=== PATIENT | female | born 1995 | race Caucasian/White ===

== ENCOUNTER 2020-12-03 10:20 | Emergency (ER) | payer MEDICAID, SELFPAY ==
[2020-12-03 10:49] VITALS: BP 120/78; PULSE 84; RESP 15; TEMP 36.8; O2SAT 97; BMI 26.5
--- NOTE | 2020-12-03 10:59 | W.ED.ABDPA2 ---
HPI - Abdominal Pain General: Chief Complaint: Abdominal Pain Stated Complaint: cramping/bloating, + test Time Seen by Provider: 12/03/20 10:21 Source: patient Mode of arrival: ambulatory Limitations: no limitations History of Present Illness: HPI narrative: Patient is a 25-year-old presumed female with unknown gestational age here for complaints of left lower abdominal/pelvic cramping and left upper abdominal bloating. She states she took a home test 4 days ago that was positive. Reports LMP being at the beginning of October but states it was only for a few days. States cramping/bloating improves with sitting/lying down and worse with ambulation. No vaginal bleeding. Reports some mild clear/white discharge that she feels is physiological. No odor. Denies new sexual partners or concerns for STDs. No dyspareunia. She does not complain of dysuria, frequency, urgency. MD elicited complaint: abdominal pain Onset (ago): day(s) (yesterday) Pain Consistency: intermittent Location: LUQ and LLQ Quality: cramping and other (bloating) Radiation: none Migration to: no migration Relieving factors: other (sitting/lying down) Associated Symptoms: Denies change in stool character, chills, diarrhea, dysuria, fever(s), hematuria, nausea and vomiting Related Data: Date of Last Menstrual Period: 10/22/20 Patient : Yes Review of Systems Const: Denies: fever(s), chills, body aches, fatigue or malaise ENMT: Denies: throat pain or odynophagia Card: Denies: chest pain Resp: Denies: dyspnea GI: Reports: abdominal pain; Denies: nausea, vomiting, diarrhea or change in stool character : Reports: vaginal discharge and pelvic pain; Denies: flank pain, difficulty voiding, dysuria, urinary frequency, urinary urgency, urinary hesitancy, hematuria, genital lesions, genital pruritis, vaginal odor, vaginal bleeding or dyspareunia Musc: Denies: neck pain or back pain Skin/Breast: Denies: rash Neuro: Denies: headache(s) ON LICENSE OF [facility] ED PFSH: Social History (Updated 07/16/19 @ 16:01 by Maggie Rosado LPN) Smoking and tobacco status: current every day smoker Alcohol intake: never Female Reproductive History: Date of last menstrual period: 10/22/20 Physical Exam Const: COMMON NORMALS: no acute distress, average body habitus, patient oriented x3, no limitations, healthy appearing, alert and well nourished GENERAL APPEARANCE: cooperative Resp: COMMON NORMALS: normal respiratory effort and clear to auscultation bilaterally AUSCULTATION: clear to auscultation bilaterally Cardio: COMMON NORMALS: regular rate and regular rhythm RATE: regular rate RHYTHM: regular rhythm GI: COMMON NORMALS: Normal to inspection, nondistended, normoactive bowel sounds present, Soft to palpation, No hepatosplenomegaly present and no masses INSPECTION: Yes normal to inspection AUSCULTATION: Yes normoactive bowel sounds PALPATION: Yes Soft to palpation and Yes No hepatosplenomegaly present OTHER: very mild pain to LUQ and L lower pelvis : COMMON NORMALS: Yes no CVA tenderness BLADDER/KIDNEY EXAM: Yes no CVA tenderness Back/Pelvis: COMMON NORMALS: no CVA tenderness Extremity: GENERAL: Yes normal exam except as noted Neuro: COMMON NORMALS: patient oriented x3 SENSORIUM/ORIENTATION: Yes alert Skin: COMMON NORMALS: no rashes or lesions noted GENERAL SKIN EXAM: no rashes or lesions noted Course ED course: Patient had multiple attempts for blood work from RNs/phlebotomy but unsuccessful. She is refusing any further attempts. Vital Signs: Vital signs: Vital Signs Temperature 98.2 F 12/03/20 10:49 Pulse Rate 84 12/03/20 10:49 Respiratory Rate 15 12/03/20 10:49 Blood Pressure 120/78 12/03/20 10:49 Pulse Oximetry 97 12/03/20 10:49 MDM - Abdominal Pain MDM Narrative: Medical decision making narrative: Patient has refused any further attempts for blood work after multiple sticks were unsuccessful. I did go ahead and run a urine which was positive. Ultrasound evaluation was ordered however patient is refusing this stating she just wants to go home and also wants a work note. Patient was made aware that ectopic cannot be ruled out at this time as we cannot confirm location. Explained that ruptured ectopic pregnancies are life-threatening and OBGYN emergences. She verbalized understanding and wants to leave. Lab Data: Labs: Lab Results 12/03/20 12/03/20 Range/Units 11:20 11:20 Urine Color Yellow (Yellow) Urine Appearance Sl hazy (CLEAR) Urine pH 5 (5-7) Ur Specific Gravit y 1.015 (1.005-1.030) Urine Protein Neg (Negative) Urine Glucose (UA) Norm (Normal) Urine Ketones Negative (Negative) Urine Blood Neg (Negative) Urine Nitrate Negative (Negative) Urine Bilirubin Neg (Negative) Urine Urobilinogen Norm (Negative) mg/dL Ur Leukocyte Shalini ase Negative (Negative) Urine RBC 0-4 H (0-2) /hpf Urine WBC None (0-5) /hpf Ur Squamous Epith Cells 5-10 H (0-5) /hpf Amorphous Sediment Not Reportable Urine Bacteria 1+ H (NONE) /hpf Urine HCG, Qual Positive H (Negative) Discharge Plan Discharge Patient Disposition: Home Clinical Impression: Qualifiers: Weeks of gestation: unspecified Qualified Code(s): Z34.90 - Encounter for supervision of normal , unspecified, unspecified trimester Condition: Stable Prescriptions: No Action No Known Home Medications RF: 0 Discharge Orders: Discharge ED (Routine); Ordered 12/03/20 Ordered By: Lizbeth Colon Referrals: Toña Maya MD [Primary Care Provider] - Patient Instructions: (ED) Activity Restrictions/Additional Instructions: Your test here was positive. Lab work was ordered and attempted however you refused further attempts. Ultrasound evaluation was ordered and you have refused this as well. Ultimately an ectopic CANNOT be ruled out at this time. Ectopic pregnancies can be life threatening. You need to return to the ED immediately for worsening pelvic pain, vaginal bleeding, racing heart rate, shortness of breath, dizziness/passing out episodes, or any other concerns you may have. Stand Alone Forms: Work/School Release Coding Level of Care Code ED Staff Nurse [employer] Resource Team for Erica Fwd Exam Detailed
[2020-12-03 11:30] LABS: Add Urine Microscopic? YES; Bilirubin Urine Neg (Negative); Blood Urine Neg (Negative); Glucose Urine UA Norm (Normal); Ketones Urine Negative (Negative); Leukocyte Esterase Urine Negative (Negative); Nitrate Urine Negative (Negative); Protein Urine Neg (Negative); Specific Gravity, Urine 1.015 (1.005-1.030); Urine Appearance SL Hazy (CLEAR); Urine Color Yellow (Yellow); Urobilinogen Urine Norm (Negative); pH Urine 5 (5-7)
[2020-12-03 11:42] LABS: Add Urine Culture? No; Bacteria Urine 1+ /hpf; RBC Urine 0-4 /hpf (0-2)
[2020-12-03 12:31] VITALS: BP 118/71; PULSE 77; RESP 16; O2SAT 99
== END 2020-12-03 12:31 | disposition home or self-care (01) ==
PROVIDERS: Emergency Provider Physician Assistant; PCP Family Medicine
DX: O26.899 Other specified pregnancy related conditions, unspecified trimester (principal); R10.9 Unspecified abdominal pain; Z3A.00 Weeks of gestation of pregnancy not specified; O99.330 Smoking (tobacco) complicating pregnancy, unspecified trimester; F17.210 Nicotine dependence, cigarettes, uncomplicated
CPT/HCPCS: 81001; 81025; 99282

== ENCOUNTER 2021-07-26 04:32 | Outpatient (CLI) | payer MEDICAID, SELFPAY ==
[2021-07-26] VITALS (10 sets, daily range): BP systolic 111–131; BP diastolic 59–88; PULSE 83–92; RESP 17; TEMP 36.7; BMI 34.9
[2021-07-26 05:30] LABS: Bilirubin Urine Neg (Negative); Blood Urine Neg (Negative); Glucose Urine UA Norm (Normal); Ketones Urine Negative (Negative); Leukocyte Esterase Urine Negative (Negative); Nitrate Urine Negative (Negative); Protein Urine Neg (Negative); Specific Gravity, Urine 1.005 (1.005-1.030); Urine Appearance Clear (CLEAR); Urine Color Yellow (Yellow); Urobilinogen Urine Norm (Negative); pH Urine 7 (5-7)
[2021-07-26 05:31] LABS: Add Urine Culture? No; Bacteria Urine 2+ /hpf; RBC Urine 0-4 /hpf (0-2); Squamous Epithelial Cell Urine 15-25 /hpf (0-5); WBC Urine 0-4 /hpf (0-5)
== END 2021-07-26 06:43 | disposition home or self-care (01) ==
LOC: OPOB 04:37 → OBGYN 04:37
PROVIDERS: PCP Family Medicine; Visit Provider Family Medicine
DX: O26.899 Other specified pregnancy related conditions, unspecified trimester (principal); Z3A.00 Weeks of gestation of pregnancy not specified; R10.9 Unspecified abdominal pain
CPT/HCPCS: 59025; 81001; 99211

== ENCOUNTER 2021-07-27 17:15 | Outpatient (CLI) | payer MEDICAID, SELFPAY ==
[2021-07-27 17:29] VITALS: BP 119/69; PULSE 106
[2021-07-27 17:36] VITALS: RESP 16
[2021-07-27 17:48] VITALS: BP 114/77; PULSE 93
[2021-07-27 17:50] VITALS: BP 117/74; PULSE 94; TEMP 36.7
[2021-07-27 18:00] VITALS: BP 117/74; PULSE 94; TEMP 36.7
== END 2021-07-27 18:00 | disposition home or self-care (01) ==
LOC: OPOB 17:18 → OBGYN 17:21
PROVIDERS: PCP Family Medicine; Visit Provider Family Medicine
DX: O36.8190 Decreased fetal movements, unspecified trimester, not applicable or unspecified (principal); Z3A.00 Weeks of gestation of pregnancy not specified; R10.9 Unspecified abdominal pain
CPT/HCPCS: 59025; 99211

== ENCOUNTER 2021-07-30 06:11 | Inpatient (IN) | payer MEDICAID, SELFPAY ==
[2021-07-30] VITALS (47 sets, daily range): BP systolic 84–137; BP diastolic 50–81; PULSE 59–100; RESP 18–20; TEMP 36.6; BMI 32.8
[2021-07-30 06:45] LABS: Basophils % 0.2 %; Eosinophils # 0.1 10^3/uL (0.0-0.8); Eosinophils % 1.1 %; Hematocrit 32.4 % (37.0-47.0); Hemoglobin 11.2 g/dL (11.5-15.3); Lymphocytes # 3.7 10^3/uL (0.8-4.8); Lymphocytes % 28.4 %; Mean Corpuscular HGB Conc 34.6 g/dL (30.0-36.0); Mean Corpuscular Hemoglobin 31.2 pg (28.0-34.0); Mean Corpuscular Volume 90.3 fl (81-99); Mean Platelet Volume 12.1 fL (7.4-10.4); Monocytes # 0.9 10^3/uL (0.2-0.9); Monocytes % 7.3 %; Neutrophils # 8.07 10^3/uL (1.8-7.7); Neutrophils % 62.6 %; Nucleated Red Blood Cells % 0 %; Platelet Count 204 10^3/cmm (130-400); Red Blood Count 3.59 10^6/uL (4.1-5.3); Red Cell Distribution Width 13.2 % (12.1-15.1); White Blood Count 12.9 10^3/uL (4.0-10.0)
[2021-07-30] MEDS: dextrose 5%-lactated ringers 1,000 ML 125 ML IV ×2 (07:04→14:26)
[2021-07-30] MEDS: oxytocin 30 UNIT/500 ML BAG IV (07:04)
[2021-07-30] MEDS: fentaNYL 50 mcg/mL INJ 2mL IVP (16:17)
--- NOTE | 2021-07-30 16:54 | PM.OPHPUD ---
Labor & Delivery H&P Update Date of Procedure: July 30, 2021 Date H&P Performed: 07/28/21 Admission Diagnosis: Pregnanc inducted hypertension 38 weeks 4 days gestation desired permanent surgical sterilization Primary indication for procedure: clinic BPs 146/92 and 140/92
--- NOTE | 2021-07-30 16:59 | P.PCNOB_ITS ---
Delivery Note: Date of delivery: July 30, 2021 Delivery: This is a 25-year-old G4, P3 at 38 weeks 4 days gestation who was admitted for induction secondary to -induced hypertension. This was just diagnosed at her last clinic visit with blood pressures in the 140s over 90s. The patient was started on high-dose Pitocin. Baby was very high and ballotable most of the day. When she was 3 cm dilated she had spontaneous rupture of membranes with a copious amount of of fluid. Despite decreasing her Pitocin, her labor progressed precipitously after that. I was notified by at 1638 nursing to come immediatley and the was already delivered with strong cry heard in the hallway at my arrival. The cord was very short. I clamped and cut it. He was then placed on mothers chest. Cord blood was obtained. The placenta was delivered grossly intact and normal to inspection. There were no lacerations. Mother and were doing well after delivery. Infant's weight was 6 pounds 13 ounces, 3085 g, Apgars 8 and 9. A&P Assessment and plan (1) Normal spontaneous vaginal delivery: Routine care Mother desires permanent surgical sterilization with bilateral tubal ligation that will be scheduled for tomorrow. Status: Acute (2) induced hypertension, delivered, current hospitalization: Her blood pressure was only mildly elevated in clinic. It has been normal here. Status: Acute Coding Level of Care Code Acute Electronic Systems Technician for g Fwd Diagnoses Normal spontaneous vaginal delivery O80 induced hypertension, delivered, current hospitalization O13.4
[2021-07-30] MEDS: oxytocin 30 UNIT/500 ML BAG 999 UNIT IV (17:07)
[2021-07-30] MEDS: ibuprofen 800 mg tablet PO (21:30)
[2021-07-31] VITALS (16 sets, daily range): BP systolic 98–125; BP diastolic 60–84; PULSE 52–80; RESP 14–22; TEMP 36.4–36.8; O2SAT 90–97
[2021-07-31] MEDS: TRAMadol 50 mg Tablet PO ×2 (00:58→14:24)
[2021-07-31 04:29] LABS: Hematocrit 29.4 % (37.0-47.0); Hemoglobin 9.6 g/dL (11.5-15.3); Mean Corpuscular HGB Conc 32.7 g/dL (30.0-36.0); Mean Corpuscular Hemoglobin 31.7 pg (28.0-34.0); Mean Platelet Volume 12.2 fL (7.4-10.4); Platelet Count 150 10^3/cmm (130-400); Red Blood Count 3.03 10^6/uL (4.1-5.3); Red Cell Distribution Width 13.5 % (12.1-15.1); White Blood Count 12.8 10^3/uL (4.0-10.0)
[2021-07-31] MEDS: lactated ringers 1,000 ML 999 ML IV (11:09)
[2021-07-31] MEDS: metoclopramide 5 mg/mL SDV 2 mL 10 MG IVP (11:10)
[2021-07-31] MEDS: famotidine 20 mg/2 mL INJ IVP (11:10)
[2021-07-31] MEDS: citric acid-sodium citrate 30 mL UDC PO (11:10)
--- NOTE | 2021-07-31 11:46 | ANES.PREANE2 ---
Documented by User: Rosendo Godfrey Jr, LINK WIRE FABRIC MACHINE OPERATOR 07/31/21 11:50 Pre-Anesthetic Assessment Height/Weight: Height 1.6 m Weight 83.915 kg Temp Pulse Resp BP Pulse Ox 97.7 F 74 16 114/69 97 07/31/21 10:02 07/31/21 10:02 07/31/21 10:02 07/31/21 10:02 07/31/21 04:52 Preop Diagnosis: undesired fertility Operation Date: 07/31/21 12:10 Proposed Procedures p Post Bilateral Tubal Ligation(Not Applicable) - Toña Maya MD Familial anesthetic complications: Tubal ligation Was Beta Raad taken within 24 hours: N/A Was Clonidine taken within 24 hours: N/A Last Intake: 23:00 Social Tobacco and No alcohol 1/2 pack(s) per day 8+ pack years Exam alert, oriented x 3, clear to auscultation bilaterally and regular rate & rhythm Airway Submandibular: within normal limits Cervical ROM: within normal limits Mallampati: Class II Dentition: full Pulmonary None reported CV/HEM None reported None reported Hepatic None reported GI None reported Metabolic None reported Musc/skel None reported Neuropsych None reported Anesthetic Plan ASA status: 2 Anesthesia: General Risk of > 500 ml blood loss (7ml/kg in children): No Medications/Allergies Home Medications Medication Instructions Recorded Confirmed Last Taken Type No Known Home Medications 12/03/20 07/30/21 Unknown History Allergies Allergy/AdvReac Type Severity Reaction Status Date / Time No Known Allergies Allergy Verified 07/30/21 20:34 Current Medications Generic Name Dose Route Start Last Admin Trade Name Barron PRN Reason Stop Dose Admin Ibuprofen 800 mg 07/30/21 21:00 07/30/21 21:30 Ibuprofen 800 Mg Tablet PO 800 mg TID KATHERINE Administration Tramadol HCl 50 - 100 mg 07/30/21 17:11 07/31/21 00:58 Tramadol 50 Mg Tablet PO 50 mg Q4H PRN Administration MODERATE TO SEVERE PAIN PFSH Anesthesia Social History (Updated 07/16/19 @ 16:01 by Maggie Rosado LPN) Smoking and tobacco status: current every day smoker Alcohol intake: never Female Reproductive History Date of last menstrual period: 10/22/20 : 4 Data Anesthesia : 07/31/21 04:20 Short CBC 07/30/21 07/31/21 Range/Units 06:32 04:20 WBC 12.9 H 12.8 H (4.0-10.0) 10^3/uL Hgb 11.2 L 9.6 L (11.5-15.3) g/dL Hct 32.4 L 29.4 L (37.0-47.0) % MCV 90.3 97.0 D (81-99) fl Plt Count 204 150 (130-400) 10^3/cmm Neut % (Auto) 62.6 % Neut # (Auto) 8.07 H (1.8-7.7) 10^3/uL Cardiac Studies: No Data to Display
--- NOTE | 2021-07-31 13:28 | P.OP_ITS ---
Operative Report Date of procedure: July 31, 2021 Pre-op diagnosis: Preop Diagnosis undesired fertility Procedure done: bilateral tubal ligation with left fimbriectomy Specimens removed/disposition: Left fimbria Pathology: Segments of right and left fallopian tubes Surgeon: Toña Maya MD Estimated blood loss: 5 mL IV fluids: 800 mL Urine output: 125 mL Complications: none Procedure: The patient was taken to to the OR where general anesthesia was administered. She was prepped and draped in normal sterile fashion in dorsal supine position. A curvilinear incision was made under the umbilicus and carried through to the underlying layer of fascia bluntly using a hemostat. The fascia was grasped with Allis clamps and entered sharply using the Metzenbaums. The peritoneum was then entered digitally. Retractors were placed and the left fallopian tube was grasped with a Austin and brought into the operative field. A distal portion of the tube was ligated and excised. Tubal ostia were identified. The cut portions of the tube were coagulated using the Bovie. The distal portion with the fimbria easily tore with gentle traction and there was some bleeding of the broad ligament. This was tied off with chromic and the fimbria was excised. After hemostasis was verified the cut portion of the tube was returned to the abdomen. The right fallopian tube was then visualized and grasped with a Arminda. It was brought into the operative field. A distal portion of the tube was ligated and excised. Tubal ostia were identified. The cut portions of the tube were coagulated using the Bovie. There is good hemostasis and the cut portions of the tube were returned to the abdomen. The fascia and peritoneum was then reapproximated using 0 Vicryl in a running fashion. The skin was then reapproximated using 4-0 Vicryl in a running fashion. Steri-Strips and a pressure bandage were applied and patient went to recovery in good condition. Sponge instrument and needle counts were correct. There were no complications.
--- NOTE | 2021-07-31 14:00 | PC.NURSE ---
pt back to room from OR via bed
[2021-07-31] MEDS: acetaminophen 325 mg Tablet 650 MG PO (14:23)
[2021-07-31] MEDS: ibuprofen 800 mg tablet PO (14:23)
--- NOTE | 2021-07-31 14:57 | ANE.PACU2 ---
Inpatient post-anesthesia follow up: Airway intact: Yes Vital signs: Temperature 97.5 F Pulse Rate 71 Respiratory Rate 18 Blood Pressure 119/75 Pulse Oximetry 94 Oxygen Delivery Me thod Room Air Oxygen Flow Rate 2 Fraction of Inspir ed Oxygen Hydration adequate: Yes Nausea and vomiting: No Pain level: 2 Mental status: Baseline
--- NOTE | 2021-07-31 18:43 | P.DS_ITS ---
Discharge Providers Date of Admission: 07/30/21 06:11 Date of Discharge: July 31, 2021 Attending Provider at Admission: Toña Maya MD Attending Provider at Discharge: Toña Maya MD Primary Care Provider: Toña Maya MD Diagnoses at Discharge Discharge Diagnosis (1) Normal spontaneous vaginal delivery: Status: Acute (2) induced hypertension, delivered, current hospitalization: Status: Acute Reason for Visit Reason for Visit: INDUCTION Hospital Course Hospital Course This is a 25-year-old G4 now P4 who underwent induction secondary to - induced hypertension. She had a normal spontaneous vaginal delivery of a viable male infant. On day #1 she underwent a bilateral tubal ligation. She was doing well, ambulating, tolerating a regular diet, had good pain control and was comfortable with discharge home. Physical Exam Narrative: Sitting on the edge of the bed, alert and oriented, smiling and talking with family, abdomen soft and nontender, uterus firm, extremities no calf tenderness no edema. Dressing clean dry and intact Urinary Catheter Management: Straight Latex: Cath Placed During This Visit: no Discharge Data Studies Completed and Pending Pending at discharge Category Date Time Status Hemagram Timed Lab 08/01/21 01:30 Uncollected Pathology: Surgical [PTH] Routine Pth 07/31/21 13:26 Ordered Laboratory Results WBC 12.8 10^3/uL (4.0-10.0) H 07/31/21 04:20 RBC 3.03 10^6/uL (4.1-5.3) L 07/31/21 04:20 Hgb 9.6 g/dL (11.5-15.3) L 07/31/21 04:20 Hct 29.4 % (37.0-47.0) L 07/31/21 04:20 MCV 97.0 fl (81-99) D 07/31/21 04:20 MCH 31.7 pg (28.0-34.0) 07/31/21 04:20 MCHC 32.7 g/dL (30.0-36.0) D 07/31/21 04:20 RDW 13.5 % (12.1-15.1) 07/31/21 04:20 Plt Count 150 10^3/cmm (130-400) 07/31/21 04:20 MPV 12.2 fL (7.4-10.4) H 07/31/21 04:20 Neut % (Auto) 62.6 % 07/30/21 06:32 Lymph % (Auto) 28.4 % 07/30/21 06:32 [place] % (Auto) 7.3 % 07/30/21 06:32 Eos % (Auto) 1.1 % 07/30/21 06:32 Baso % (Auto) 0.2 % 07/30/21 06:32 Neut # (Auto) 8.07 10^3/uL (1.8-7.7) H 07/30/21 06:32 Lymph # (Auto) 3.7 10^3/uL (0.8-4.8) 07/30/21 06:32 [place] # (Auto) 0.9 10^3/uL (0.2-0.9) 07/30/21 06:32 Eos # (Auto) 0.1 10^3/uL (0.0-0.8) 07/30/21 06:32 Baso # (Auto) 0.0 10^3/uL (0.0-0.1) 07/30/21 06:32 Nucleated RBC % (auto) 0 % 07/30/21 06:32 Nucleated RBCs # 0.0 /100WBC 07/30/21 06:32 Vitals Last Vital Signs Temp 98.3 F 07/31/21 15:10 Pulse 56 L 07/31/21 17:10 Resp 17 07/31/21 17:10 BP 113/69 07/31/21 17:10 Pulse Ox 97 07/31/21 17:10 Discharge Plan Discharge Condition: Stable Prescriptions: New ibuprofen 800 mg Tablet 800 mg PO TID PRN (Reason: Abdominal Pain) 10 Days Qty: 30 0RF hydrocodone-acetaminophen 5-325 mg Tablet 1 - 2 tab PO Q6H PRN (Reason: Moderate To Severe Pain) Qty: 10 0RF Discharge Orders: Discharge Order (Routine); Ordered 07/31/21 Ordered By: Toña Maya Referrals: Toña Maya MD [Primary Care Provider] - 1-3 days (Wednesday) Discharge Diet: Usual diet Discharge Activity: Limit activity as instructed Patient Instructions: Depression (DC), Perineal Care (DC), Bleeding (DC), Preeclampsia and Eclampsia After Delivery (GEN), OB Food/Drug Interaction Guide, OB Care at Home, Opioid Safety, OB Vaginal Deliveries Activity Restrictions/Additional Instructions: No lifting >10 lbs for 2 weeks. Nothing per vagina for 6 weeks. Discharge Attestations Time Spent in Discharge Care*: less than 30 min Quality Metrics Clinical Quality Measures [ No reported AMI, CVA or VTE this stay] Coding Level of Care Code Acute Chg FW DC note Diagnoses Normal spontaneous vaginal delivery O80 induced hypertension, delivered, current hospitalization O13.4
== END 2021-07-31 20:29 | disposition home or self-care (01) | DRG 798 ==
LOC: OPOB 06:11 → OBGYN 06:11
PROVIDERS: Admitting Provider Family Medicine; PCP Family Medicine; Visit Provider Family Medicine
PROC: 0U570ZZ Destruction of Bilateral Fallopian Tubes, Open Approach (ICD-10-PCS; CPT 58605; principal; 2021-07-31 12:00)
DX: O13.4 Gestational [pregnancy-induced] hypertension without significant proteinuria, complicating childbirth (principal); Z37.0 Single live birth; O99.334 Smoking (tobacco) complicating childbirth; Z3A.38 38 weeks gestation of pregnancy; Z30.2 Encounter for sterilization
CPT/HCPCS: 36415; 51702; 59025; 59409; 85025; 85027; 88302; 99211; J0690; J1100; J2370; J2405; J2704; J2710; J2765; J3010; J3490

== ENCOUNTER → 2021-09-28 11:45 | Outpatient (BNVA) | payer MEDICAID, SELFPAY | PROVIDERS: PCP Family Medicine; Visit Provider Nurse Practitioner | DX: J11.1 Influenza due to unidentified influenza virus with other respiratory manifestations (principal) | CPT/HCPCS: 87400 ==

== ENCOUNTER 2022-06-07 16:04 | Emergency (ER) | payer MEDICAID, SELFPAY ==
[2022-06-07 16:12] VITALS: BP 120/83; PULSE 101; RESP 16; TEMP 37.4; O2SAT 98
--- NOTE | 2022-06-07 17:12 | ED_ITS ---
HPI - URI/Sore Throat General: Chief Complaint: Upper Respiratory Infection Stated Complaint: sore throat, body/head ache Time Seen by Provider: 06/07/22 17:08 History of Present Illness: 26-year-old female comes in today with complaints of sore throat cough, fever and poor appetite for the last 3 days. Patient is using [id number] cold and flu medications minimal relief. Patient appears nontoxic. Patient denies any chronic medical problems. Associated symptoms: Reports fever(s) Review of Systems Const: Reports: fever(s) and malaise ENMT: Reports: throat pain Resp: Reports: non-productive cough PFSH ED PFSH: Social History Smoking and tobacco status: current every day smoker Alcohol intake: never Female Reproductive History: Date of last menstrual period: 10/22/20 Physical Exam Const: COMMON NORMALS: alert HENMT: COMMON NORMALS: normocephalic HEAD & SCALP: normocephalic THROAT: posterior oropharynx abnormal cobblestoning Neck/C-Spine: COMMON NORMALS: full ROM Resp: COMMON NORMALS: normal respiratory effort and clear to auscultation bilaterally AUSCULTATION: clear to auscultation bilaterally Cardio: COMMON NORMALS: regular rate and regular rhythm RATE: regular rate RHYTHM: regular rhythm GI: COMMON NORMALS: non-tender : COMMON NORMALS: Yes no CVA tenderness BLADDER/KIDNEY EXAM: Yes no CVA tenderness Back/Pelvis: COMMON NORMALS: no CVA tenderness Neuro: SENSORIUM/ORIENTATION: Yes alert Skin: COMMON NORMALS: no rashes or lesions noted GENERAL SKIN EXAM: no rashes or lesions noted Course Vital Signs: Vital signs: Vital Signs Temperature 99.4 F 06/07/22 16:12 Pulse Rate 101 H 06/07/22 16:12 Respiratory Rate 16 06/07/22 16:12 Blood Pressure 120/83 06/07/22 16:12 Pulse Oximetry 98 06/07/22 16:12 MDM - URI/Sore Throat Medical Decision Making 26-year-old female comes in today with complaints of cough, sore throat, fever and malaise since Wednesday. Patient appears nontoxic. Lungs are clear to auscultation. Posterior pharynx is cobblestoning. Vital signs are normal. Differential diagnosis includes but not limited to viral syndrome, upper respiratory infection, influenza, COVID-19, strep pharyngitis. Patient did report contact with strep. Swabs for COVID, influenza, and strep were all negative. Reviewed exam with patient and recommendations for treatment with supportive care. Patient reported understanding agreed to plan. Lab Data Laboratory Results Influenza Type A Ag negative (Negative) 06/07/22 17:11 Influenza Type B Ag negative (Negative) 06/07/22 17:11 SARS-CoV-2 Ag (Rapid) negative (Negative) 06/07/22 17:11 Group A Strep Rapid Negative (Negative) 06/07/22 17:11 Discharge Plan Discharge Patient Disposition: Home Clinical Impression: Upper respiratory infection Qualifiers: URI type: unspecified URI Qualified Code(s): J06.9 - Acute upper respiratory infection, unspecified Condition: Stable Prescriptions: No Action hydrocodone-acetaminophen 5-325 mg Tablet 1 - 2 tab PO Q6H PRN (Reason: Moderate To Severe Pain) Qty: 10 0RF Discharge Orders: Discharge ED (Routine); Ordered 06/07/22 Ordered By: Rosendo Whalen Referrals: Toña Maya MD [Primary Care Provider] - Discharge Diet: Usual diet Discharge Activity: Increase activity as tolerated Patient Instructions: Upper Respiratory Infection (ED) Activity Restrictions/Additional Instructions: Home and rest. Drink plenty of fluids. Use acetaminophen and ibuprofen for pain and discomfort. Follow-up with primary care in 2 to 3 days for recheck. Return to ED for worsening symptoms such as inability to hold fluids down, chest pain, or increased shortness of breath. Coding Level of Care Code ED Environmental Compliance Manager for [employer] Fwd Exam Comprehensive
[2022-06-07] MEDS: ibuprofen 200 mg Tablet 400 MG PO (17:25)
[2022-06-07 17:47] LABS: Influenza A by IFA negative (Negative); Influenza B by IFA negative (Negative); SARS Covid-2 Antigen negative (Negative)
[2022-06-07 17:54] LABS: Rapid Strep A Test Negative (Negative)
[2022-06-07 18:11] VITALS: BP 115/79; PULSE 78; RESP 14; TEMP 36.7; O2SAT 96
== END 2022-06-07 18:09 | disposition home or self-care (01) ==
PROVIDERS: Emergency Provider Nurse Practitioner Family; PCP Family Medicine
DX: J06.9 Acute upper respiratory infection, unspecified (principal); Z20.822 Contact with and (suspected) exposure to COVID-19; F17.210 Nicotine dependence, cigarettes, uncomplicated
CPT/HCPCS: 87081; 87426; 87804; 87880; 99283

== ENCOUNTER 2023-08-21 07:48 | Emergency (ER) | payer MEDICAID, SELFPAY ==
[2023-08-21 07:54] VITALS: BP 147/96; PULSE 71; RESP 17; TEMP 36.5; O2SAT 100
[2023-08-21 08:03] VITALS: BP 147/96; PULSE 66; TEMP 36.5; O2SAT 100
--- NOTE | 2023-08-21 08:11 | ED_ITS ---
HPI - Dental/Oral General: Chief complaint: Dental/Oral Stated complaint: tooth pain Time Seen by Provider: 08/21/23 08:08 History of Present Illness: The patient presents to the emergency department with a chief complaint of severe toothache, which they describe as the worst they have ever experienced. The pain began on Wednesday and initially responded to [id number] Tylenol and ibuprofen; however, last night, the pain became unresponsive to these medications. The patient denies any fever but reports consistent pain that radiates up into their head. They have a history of dental issues but have not been able to afford dental care. The patient has a scheduled dental appointment in September and is waiting for a possible earlier opening. The patient also reports being extremely tired due to only getting an hour of sleep last night as a result of the pain. Associated symptoms: Denies fever(s) or odynophagia Review of Systems General: Reports: 10 or more systems reviewed and unremarkable except in HPI and below Const: Denies: fever(s), chills or body aches ENMT: Reports: mouth pain; Denies: throat pain, odynophagia or hoarseness Card: Denies: chest pain Resp: Denies: dyspnea Skin/Breast: Denies: rash Neuro: Denies: headache(s) PFS ED PFSH: Social History Smoking and tobacco/nicotine status: current every day tobacco/nicotine user Alcohol intake: never Substance/Drug Use: never Physical Exam Const: COMMON NORMALS: no acute distress, patient oriented x3 and alert EXAM LIMITATIONS: no altered mental status GENERAL APPEARANCE: cooperative ORIENTATION/CONSCIOUSNESS: Yes awake HENMT: COMMON NORMALS: normocephalic, moist oral mucous membranes and oropharynx normal HEAD & SCALP: normocephalic TEETH & GINGIVA: Yes abnormal tooth and associated gingiva, Yes caries (Dental caries noted on the posterior right molars with erythema noted surro) and Yes gingiva abnormal diffusely erythematous and tender (Tenderness without fluctuant mass) Eye: COMMON NORMALS: EOMs intact bilaterally Neck/C-Spine: COMMON NORMALS: full ROM and supple Chest: COMMONS NORMALS: normal inspection of the chest Resp: COMMON NORMALS: normal respiratory effort, No retractions, No use of accessory muscles and clear to auscultation bilaterally AUSCULTATION: clear to auscultation bilaterally Cardio: COMMON NORMALS: regular rate, regular rhythm, No murmurs present (Cardio) and No rub (Cardio) RATE: regular rate RHYTHM: regular rhythm GI: COMMON NORMALS: Soft to palpation and non-tender PALPATION: Yes Soft to palpation Extremity: GENERAL: Yes normal exam except as noted Neuro: COMMON NORMALS: patient oriented x3 SENSORIUM/ORIENTATION: Yes alert Skin: COMMON NORMALS: no rashes or lesions noted GENERAL SKIN EXAM: no rashes or lesions noted Course Vital Signs: Vital signs: Vital Signs Temperature 97.7 F 08/21/23 08:03 Pulse Rate 66 08/21/23 08:03 Respiratory Rate 17 08/21/23 07:54 Blood Pressure 147/96 08/21/23 08:03 Pulse Oximetry 100 08/21/23 08:03 Oxygen Delivery Me thod Room Air 08/21/23 08:03 MDM - Dental/Oral Medical Decision Making Toothache Concerns: Patient presents with severe toothache starting on Wednesday, w ith pain intensifying last night. No fever reported, and no visible abscess or drainage opportunity identified during examination. Patient has a history of dental issues and has a dental appointment scheduled in September. - Prescribe pain medication for immediate relief. - Prescribe antibiotics to address potential infection and reduce pain. Provide a refill in case symptoms recur before the dental appointment. - Advise the patient to arrange for someone to drive them home due to the sedating effects of the pain medication. - Send prescription to the patient's preferred pharmacy ([facility] in [place]). - Encourage the patient to follow up with their dentist as scheduled and seek an earlier appointment if possible or if symptoms worsen. Differential Diagnosis Likely gingival abscess, dental caries, toothache and dental abscess No radiology studies performed this visit Discharge Plan Discharge Patient Disposition: Home Clinical Impression: Dental caries, Toothache Condition: Stable Prescriptions: New amoxicillin 875 mg tablet 875 mg PO BID Qty: 14 1RF Narcan 4 mg/actuation spray,non-aerosol 4 mg intranasal Q2M Qty: 2 0RF Rx Instructions: spray 1 dose into ONE nostril; alternate nostrils w each dose until help arrives hydrocodone-acetaminophen 10-325 mg tablet 1 tab PO Q6H PRN (Reason: pain) Qty: 10 0RF Discharge Orders: Discharge ED (Routine); Ordered 08/21/23 Ordered By: Sb Law Referrals: Toña Maya MD [Primary Care Provider] - Discharge Diet: Advance as tolerated Discharge Activity: Resume usual activity Patient Instructions: Opioid Safety, Pain Management Coding Level of Care Code ED Marking Machine Tender for Erica Gutierrez
[2023-08-21 08:46] VITALS: RESP 16
[2023-08-21] MEDS: morphine 4 mg/mL SDV 1 mL IM (08:46)
[2023-08-21 09:12] VITALS: BP 139/87; PULSE 56; O2SAT 56
== END 2023-08-21 09:13 | disposition home or self-care (01) ==
PROVIDERS: Emergency Provider General Practice; PCP Family Medicine
DX: K02.9 Dental caries, unspecified (principal); Z72.0 Tobacco use
CPT/HCPCS: 96372; 99284; J2270

== ENCOUNTER 2023-08-23 22:50 | Emergency (ER) | payer MEDICAID, SELFPAY ==
[2023-08-23 22:55] VITALS: BP 116/74; PULSE 82; RESP 16; TEMP 36.6; O2SAT 98; BMI 29.2
--- NOTE | 2023-08-23 23:08 | ED_ITS ---
Documented by User: TYLER Arriaga 08/23/23 23:13 HPI - Dental/Oral General: Chief complaint: Dental/Oral Stated complaint: dental pain Time Seen by Provider: 08/23/23 22:54 Source: patient Mode of arrival: ambulatory Limitations: no limitations History of Present Illness: Patient is a 28-year-old female presenting in the emergency department complaining of nausea and vomiting onset today. Patient was seen on Wednesday due to dental pain, and prescribed amoxicillin as well of [place] for pain. She notes that her dental pain has remained, but she is now having nausea and vomiting with some associated weakness. She took amoxicillin today as prescribed, and has only taken 2 doses of her [place]. She denies any other symptoms at this time. No fevers. Associated symptoms: Denies ear or mastoid pain or fever(s) Review of Systems General: Reports: 10 or more systems reviewed and unremarkable except in HPI and below Const: Denies: fever(s), chills or fatigue Eyes: Denies: change in vision ENMT: Reports: dental pain; Denies: throat pain, ear or mastoid pain or nasal discharge Card: Denies: chest pain, palpitations, swelling of feet/ankles or lightheadedness Resp: Denies: dyspnea, productive cough or wheezing GI: Reports: nausea and vomiting; Denies: abdominal pain, diarrhea or constipation : Denies: flank pain, difficulty voiding, dysuria or urinary frequency Musc: Denies: neck pain, back pain or joint pain Skin/Breast: Denies: rash Neuro: Reports: weakness in extremities; Denies: headache(s) or numbness in extremities PFS ED PFSH: Social History Smoking and tobacco/nicotine status: current every day tobacco/nicotine user Alcohol intake: never Substance/Drug Use: never Female Reproductive History: Date of last menstrual period: 07/25/23 Physical Exam Const: COMMON NORMALS: no acute distress, patient oriented x3 and no limitations GENERAL APPEARANCE: cooperative, comfortable and well developed ORIENTATION/CONSCIOUSNESS: Yes awake, Yes oriented to person, Yes oriented to place and Yes oriented to time HENMT: COMMON NORMALS: normocephalic, atraumatic, hearing grossly normal bilaterally, external ears normal and Normal external nose present HEAD & SCALP: normocephalic and atraumatic FACE & SINUS: normal facial exam, sinuses nontender and face symmetric NOSE: Normal external nose present, Normal nares present and No nasal polyps present EXTERNAL EAR: Yes external ears normal MOUTH: Normal oral and palatal mucosa present, lip normal and tongue normal TEETH & GINGIVA: Yes fair dentition and Yes other (Otherwise unremarkable oral exam) THROAT: posterior oropharynx normal Eye: COMMON NORMALS: Equal, round and reactive pupils present, EOMs intact bilaterally and conjunctivae normal CONJUNCTIVA: Yes conjunctivae normal PUPIL: Yes Equal, round and reactive pupils present Neck/C-Spine: COMMON NORMALS: full ROM, supple and no JVD Resp: COMMON NORMALS: normal respiratory effort, No retractions, No use of accessory muscles and clear to auscultation bilaterally AUSCULTATION: clear to auscultation bilaterally Cardio: COMMON NORMALS: no JVD, regular rate, regular rhythm, No clicks present (Cardio), No murmurs present (Cardio) and No rub (Cardio) RATE: regular rate RHYTHM: regular rhythm Extremity: COMMON NORMALS: normal to inspection, full ROM and capillary refill normal Neuro: COMMON NORMALS: patient oriented x3, moves all extremities, no focal motor deficits and no sensory deficits noted SENSORIUM/ORIENTATION: Yes oriented to person, Yes oriented to place and Yes oriented to time Psych: COMMON NORMALS: mental status grossly normal and Normal thought process present THOUGHT PROCESS: Normal thought process present Skin: COMMON NORMALS: no rashes or lesions noted GENERAL SKIN EXAM: no rashes or lesions noted Course Vital Signs: Vital signs: Vital Signs Temperature 97.9 F 08/23/23 22:55 Pulse Rate 74 08/23/23 23:14 Respiratory Rate 18 08/23/23 23:14 Blood Pressure 119/74 08/23/23 23:14 Pulse Oximetry 99 08/23/23 23:14 Oxygen Delivery Me thod Room Air 08/23/23 22:55 MDM - Dental/Oral Medical Decision Making Patient seen and evaluated due to new onset nausea and vomiting. As previously stated, patient seen on Wednesday and prescribed amoxicillin for presumed dental infection. Vitals normal on arrival. Oral examination essentially unremarkable. Patient states she is due to see a dentist next Wednesday. Due to her stability, I believe that her nausea and vomiting are potentially a culprit of medication, specifically the amoxicillin. I will switch her to a different antibiotic and tell her that if she continues to have symptoms she can quit taking the narcotic pain medication and alternate Tylenol and ibuprofen. Informed her to keep her follow-up as planned next Wednesday and return precautions are given. Differential Diagnosis Likely gingival abscess, dental caries, toothache and dental abscess No radiology studies performed this visit Discharge Plan Discharge Patient Disposition: Home Clinical Impression: Toothache Condition: Stable Prescriptions: New cefdinir 300 mg capsule 300 mg PO BID 10 Days Qty: 20 0RF Discontinued amoxicillin 875 mg tablet 875 mg PO BID Qty: 14 1RF No Action Narcan 4 mg/actuation spray,non-aerosol 4 mg intranasal Q2M Qty: 2 0RF Rx Instructions: spray 1 dose into ONE nostril; alternate nostrils w each dose until help arrives hydrocodone-acetaminophen 10-325 mg tablet 1 tab PO Q6H PRN (Reason: pain) Qty: 10 0RF Discharge Orders: Discharge ED (Routine); Ordered 08/23/23 Ordered By: Ralph Frye Referrals: Toña Maya MD [Primary Care Provider] - Discharge Diet: Usual diet Discharge Activity: Increase activity as tolerated Patient Instructions: Dental Abscess (ED) Activity Restrictions/Additional Instructions: Quit taking your amoxicillin. Start cefdinir as prescribed. Continue pain medications as needed. Plenty of fluids. Follow-up with dentist next week as planned. Return with any new or concerning symptoms. Coding Level of Care Code ED Walking Dragline Operator for Chg Fwd Documented by User: Stephen Burton DO 08/28/23 08:21 HPI - Dental/Oral General: Chief complaint: Dental/Oral Stated complaint: dental pain Time Seen by Provider: 08/23/23 22:54 PFSH ED PFSH: Social History Smoking and tobacco/nicotine status: current every day tobacco/nicotine user Alcohol intake: never Substance/Drug Use: never Course Vital Signs: Vital signs: Vital Signs Temperature 97.9 F 08/23/23 22:55 Pulse Rate 74 08/23/23 23:14 Respiratory Rate 18 08/23/23 23:14 Blood Pressure 119/74 08/23/23 23:14 Pulse Oximetry 99 08/23/23 23:14 Oxygen Delivery Me thod Room Air 08/23/23 22:55 MDM - Dental/Oral Medical Decision Making Patient seen and evaluated due to new onset nausea and vomiting. As previously stated, patient seen on Wednesday and prescribed amoxicillin for presumed dental infection. Vitals normal on arrival. Oral examination essentially unremarkable. Patient states she is due to see a dentist next Wednesday. Due to her stability, I believe that her nausea and vomiting are potentially a culprit of medication, specifically the amoxicillin. I will switch her to a different antibiotic and tell her that if she continues to have symptoms she can quit taking the narcotic pain medication and alternate Tylenol and ibuprofen. I nformed her to keep her follow-up as planned next Wednesday and return precautions are given. Chart reviewed Discharge Plan Discharge Patient Disposition: Home Clinical Impression: Toothache Condition: Stable Prescriptions: New cefdinir 300 mg capsule 300 mg PO BID 10 Days Qty: 20 0RF Discontinued amoxicillin 875 mg tablet 875 mg PO BID Qty: 14 1RF No Action Narcan 4 mg/actuation spray,non-aerosol 4 mg intranasal Q2M Qty: 2 0RF Rx Instructions: spray 1 dose into ONE nostril; alternate nostrils w each dose until help arrives hydrocodone-acetaminophen 10-325 mg tablet 1 tab PO Q6H PRN (Reason: pain) Qty: 10 0RF Discharge Orders: Discharge ED (Routine); Ordered 08/23/23 Ordered By: Ralph Frye Referrals: Toña Maya MD [Primary Care Provider] - Discharge Diet: Usual diet Discharge Activity: Increase activity as tolerated Patient Instructions: Dental Abscess (ED) Activity Restrictions/Additional Instructions: Quit taking your amoxicillin. Start cefdinir as prescribed. Continue pain medications as needed. Plenty of fluids. Follow-up with dentist next week as planned. Return with any new or concerning symptoms. Coding Level of Care Code ED Walking Dragline Operator for Erica Gutierrez
[2023-08-23 23:14] VITALS: BP 119/74; PULSE 74; RESP 18; O2SAT 99
== END 2023-08-23 23:15 | disposition home or self-care (01) ==
PROVIDERS: Emergency Provider Physician Assistant; PCP Family Medicine
DX: K08.89 Other specified disorders of teeth and supporting structures (principal); Z72.0 Tobacco use
CPT/HCPCS: 99283

== ENCOUNTER 2024-04-14 15:58 | Emergency (ER) | payer MEDICAID, SELFPAY ==
[2024-04-14 16:19] VITALS: BP 123/70; PULSE 65; RESP 16; TEMP 36.6; O2SAT 100; BMI 27.4
--- NOTE | 2024-04-14 16:46 | W.ED.BACK ---
Documented by User: TYLER Ford 04/17/24 09:08 HPI - Back Pain/Injury General: Chief Complaint: Back Pain/Injury Stated Complaint: ( call to get ct-scan) back pain Time Seen by Provider: 04/14/24 16:43 Source: patient Mode of arrival: ambulatory Limitations: no limitations History of Present Illness: Patient is a 28-year-old female presents to ED today stating she was told to come here by her primary care provider, Dr. Fountain for CT imaging of her back. Patient states she has a longstanding history of back pain. She feels like her pain today is at baseline. She has noticed over the past few days some urinary urgency and small voids. She reportedly reached out to Tuee who called her and left a voicemail on her phone. She was able to play this for me to listen. She essentially was told to come to the emergency department as provider was concerned about a pinched nerve leading to her bladder . Patient is not having any episodes of urinary incontinence or retention. She is not having any bowel incontinence or retention. She is ambulatory here without difficulty or assistance. No flank pain. No fevers or vomiting. 28-year-old female referred to the emergency room for concerns of persistent low back pain and urinary frequency and urgency. Dr. Fountain had talked with the patient when she expressed concerns about her dysuria. He has referred patient to the ER for further imaging and evaluation. Patient appears nontoxic. Patient appears in no severe pain. MD elicited complaint: back pain Pertinent past history: prior back pain Onset (ago): day(s) Timing: constant Severity: moderate Similar Symptoms Previously: Yes Location: lumbar spine Radiation: none Exacerbating factors: none Relieving factors: none Associated symptoms: Reports no associated symptoms; Deny abdominal pain, chills, difficulty walking, dysuria, fatigue, fever(s), hematuria, nausea or vomiting Related Data Previous Rx's Medication Instructions Recorded hydrocodone 10 mg-acetaminophen 1 tab PO Q6H PRN pain #10 tabs 08/21/23 325 mg tablet naloxone 4 mg/actuation nasal 4 mg intranasal Q2M #2 ea 08/21/23 spray (Narcan) nitrofurantoin 100 mg PO BID 5 days #10 caps 04/14/24 monohydrate/macrocrystals 100 mg capsule phenazopyridine 100 mg tablet 100 mg PO TID PRN dysuria #9 tabs 04/14/24 Allergies Allergy/AdvReac Type Severity Reaction Status Date / Time No Known Allergies Allergy Verified 08/23/23 23:00 Review of Systems Const: Denies: fever(s), chills, body aches, fatigue or malaise Card: Denies: chest pain Resp: Denies: dyspnea GI: Denies: abdominal pain, nausea, vomiting or diarrhea : Reports: urinary frequency and urinary hesitancy; Denies: flank pain, difficulty voiding, dysuria, dribbling, hematuria, vaginal bleeding, vaginal discharge or pelvic pain Musc: Reports: back pain (chronic); Denies: neck pain, extremity pain, extremity swelling, joint pain or joint swelling Skin/Breast: Denies: rash Neuro: Denies: headache(s), numbness in extremities, weakness in extremities, sensory changes or difficulty walking [facility] PFSH: Social History Smoking and tobacco/nicotine status: current every day tobacco/nicotine user Alcohol intake: never Substance/Drug Use: never Physical Exam Const: COMMON NORMALS: no acute distress, average body habitus, patient oriented x3, no limitations, healthy appearing and well nourished GENERAL APPEARANCE: cooperative GI: COMMON NORMALS: Normal to inspection, nondistended, normoactive bowel sounds present, Soft to palpation, non-tender and no masses PALPATION: Yes Soft to palpation : COMMON NORMALS: Yes no CVA tenderness BLADDER/KIDNEY EXAM: Yes no CVA tenderness Back/Pelvis: COMMON NORMALS: no CVA tenderness LUMBAR SPINE/LOWER BACK: Yes lumbar spinal tenderness (minimal) PELVIS: Yes buttocks normal and No sciatic notch tenderness SACRUM: no tenderness COCCYX: no tenderness Extremity: GENERAL: Yes normal exam except as noted Neuro: COMMON NORMALS: patient oriented x3, moves all extremities, no focal motor deficits, no sensory deficits noted and gait normal SENSORY EXAM: Yes other (normal sensation bilateral LEs) MOTOR EXAM: 5/5 motor strength present throughout Course ED course: CT scan and UA ordered and pending. Care transferred to SARI Roberts at shift change. ES Vital Signs: Vital signs: Vital Signs Temperature 97.8 F 04/14/24 16:19 Pulse Rate 58 L 04/14/24 18:34 Respiratory Rate 16 11/22/24 18:34 Blood Pressure 108/79 04/14/24 18:34 Pulse Oximetry 100 04/14/24 18:34 Oxygen Delivery Me thod Room Air 04/14/24 18:34 MDM - Back Pain/Injury Labs Radiology Impressions Lumbar Spine CT 04/14/24 16:56 IMPRESSION: No acute findings. Laboratory Results HCG, Qual Negative (Negative) 04/14/24 17:19 Urine Color Yellow (Yellow) 04/14/24 17:19 Urine Appearance Cloudy (CLEAR) A 04/14/24 17:19 Urine pH 6.0 (5-7) 04/14/24 17:19 Ur Specific [place] 1.022 (1.005-1.030) 04/14/24 17:19 Urine Protein 1+ (Negative) A 04/14/24 17:19 Urine Glucose (UA) Negative (Normal) 04/14/24 17:19 Urine Ketones Negative (Negative) 04/14/24 17:19 Urine Blood 3+ (Negative) A 04/14/24 17:19 Urine Nitrate Positive (Negative) A 04/14/24 17:19 Urine Bilirubin Negative (Negative) 04/14/24 17:19 Urine Urobilinogen 1.0 mg/dL (Negative) 04/14/24 17:19 Ur Leukocyte Esterase 3+ (Negative) A 04/14/24 17:19 Urine RBC 3-5 /hpf (0-2) 04/14/24 17:19 Urine WBC >100 /hpf (0-5) H 04/14/24 17:19 Ur Squamous Epith Cells 0-5 /hpf (0-5) 04/14/24 17:19 Amorphous Sediment Not Reportable 04/14/24 17:19 Urine Bacteria 4+ /hpf (NONE) H 04/14/24 17:19 Hyaline Casts 0-4 /lpf H 04/14/24 17:19 Discharge Plan Discharge Patient Disposition: Home Clinical Impression: UTI (urinary tract infection) due to Enterococcus Back pain Qualifiers: Back pain location: low back pain Chronicity: unspecified Back pain laterality: unspecified Sciatica presence: without sciatica Qualified Code(s): M54.50 - Low back pain, unspecified Condition: Stable Prescriptions: New phenazopyridine 100 mg tablet 100 mg PO TID PRN (Reason: dysuria) Qty: 9 0RF nitrofurantoin monohyd/m-cryst 100 mg capsule 100 mg PO BID 5 Days Qty: 10 0RF Rx Instructions: must administer with a meal/food No Action Narcan 4 mg/actuation spray,non-aerosol 4 mg intranasal Q2M Qty: 2 0RF Rx Instructions: spray 1 dose into ONE nostril; alternate nostrils w each dose until help arrives hydrocodone-acetaminophen 10-325 mg tablet 1 tab PO Q6H PRN (Reason: pain) Qty: 10 0RF Discharge Orders: Discharge ED (Routine); Ordered 04/14/24 Ordered By: Rosendo Whalen Referrals: Toña Maya MD [Primary Care Provider] - Patient Instructions: Pain Management Activity Restrictions/Additional Instructions: Take medications for urinary tract infection. Follow-up with Dr. Fountain for results of CT scan. Sign Out Sign Out Data: Patient Sign Out occurred on 04/14/24 at 17:02. Patient's care was discussed, and care was transferred from TYLER Ford to SARI Yates. Coding Level of Care Code ED Washery Engineer for Chg Fwd Documented by User: SARI Yates 04/14/24 19:23 HPI - Back Pain/Injury General: Chief Complaint: Back Pain/Injury Stated Complaint: ( call to get ct-scan) back pain Time Seen by Provider: 04/14/24 16:43 History of Present Illness: 28-year-old female referred to the emergency room for concerns of persistent low back pain and urinary frequency and urgency. Dr. Fountain had talked with the patient when she expressed concerns about her dysuria. He has referred patient to the ER for further imaging and evaluation. Patient appears nontoxic. Patient appears in no severe pain. Associated symptoms: Reports urinary urgency Related Data Previous Rx's Medication Instructions Recorded hydrocodone 10 mg-acetaminophen 1 tab PO Q6H PRN pain #10 tabs 08/21/23 325 mg tablet naloxone 4 mg/actuation nasal 4 mg intranasal Q2M #2 ea 08/21/23 spray (Narcan) nitrofurantoin 100 mg PO BID 5 days #10 caps 04/14/24 monohydrate/macrocrystals 100 mg capsule phenazopyridine 100 mg tablet 100 mg PO TID PRN dysuria #9 tabs 04/14/24 Allergies Allergy/AdvReac Type Severity Reaction Status Date / Time No Known Allergies Allergy Verified 08/23/23 23:00 Review of Systems General: Reports: 10 or more systems reviewed and unremarkable except in HPI and below : Reports: urinary urgency PFS ED PFSH: Social History Smoking and tobacco/nicotine status: current every day tobacco/nicotine user Alcohol intake: never Substance/Drug Use: never Physical Exam Const: COMMON NORMALS: alert HENMT: COMMON NORMALS: normocephalic HEAD & SCALP: normocephalic Neck/C-Spine: COMMON NORMALS: full ROM Resp: COMMON NORMALS: normal respiratory effort Cardio: COMMON NORMALS: regular rate RATE: regular rate Back/Pelvis: COMMON NORMALS: thoracic and lumbar spine normal to inspection Extremity: COMMON NORMALS: full ROM Neuro: SENSORIUM/ORIENTATION: Yes alert Skin: COMMON NORMALS: turgor normal GENERAL SKIN EXAM: turgor normal Course Vital Signs: Vital signs: Vital Signs Temperature 97.8 F 04/14/24 16:19 Pulse Rate 58 L 04/14/24 18:34 Respiratory Rate 16 04/14/24 18:34 Blood Pressure 108/79 04/14/24 18:34 Pulse Oximetry 100 04/14/24 18:34 Oxygen Delivery Me thod Room Air 04/14/24 18:34 MDM - Back Pain/Injury Medical Decision Making 28-year-old female comes in today for complaints of urinary frequency and urgency. Patient denies any fever or chills. Patient does report recurrent low back pain. She was referred to the ER for concerns of possible cauda equina syndrome. Patient moves without any difficulty. Patient appears nontoxic. Patient appears in mild pain. Vital signs are normal. Differential diagnosis includes but not limited to lumbar radiculopathy, intervertebral disc disease, facet arthropathy, cauda equina syndrome, urinary tract infection. No signs of cauda equina syndrome is noted. Patient has no loss of bowel or bladder control. Urinalysis demonstrated a large amount of white blood cells and positive nitrates. Patient was negative for . CT scan was performed patient did not want to wait for the results and left before results. No signs of cauda equina was noted. Patient was recommended just to follow-up with Dr. Fountain for final results of CT scan. Patient was recommended to take Macrobid 100 mg twice a day for 5 days and Pyridium for pain. Labs Radiology Impressions Lumbar Spine CT 04/14/24 16:56 IMPRESSION: No acute findings. Laboratory Results HCG, Qual Negative (Negative) 04/14/24 17:19 Urine Color Yellow (Yellow) 04/14/24 17:19 Urine Appearance Cloudy (CLEAR) A 04/14/24 17:19 Urine pH 6.0 (5-7) 04/14/24 17:19 Ur Specific [place] 1.022 (1.005-1.030) 04/14/24 17: Urine Protein 1+ (Negative) A 04/14/24 17: Urine Glucose (UA) Negative (Normal) 04/14/24 17:19 Urine Ketones Negative (Negative) 04/14/24 17: Urine Blood 3+ (Negative) A 04/14/24 17: Urine Nitrate Positive (Negative) A 04/14/24 17: Urine Bilirubin Negative (Negative) 04/14/24 17:19 Urine Urobilinogen 1.0 mg/dL (Negative) 04/14/24 17:19 Ur Leukocyte Esterase 3+ (Negative) A 04/14/24 17:19 Urine RBC 3-5 /hpf (0-2) 04/14/24 17:19 Urine WBC >100 /hpf (0-5) H 04/14/24 17:19 Ur Squamous Epith Cells 0-5 /hpf (0-5) 04/14/24 17:19 Amorphous Sediment Not Reportable 04/14/24 17:19 Urine Bacteria 4+ /hpf (NONE) H 04/14/24 17:19 Hyaline Casts 0-4 /lpf H 04/14/24 17:19 XR interpretation done by ED provider, pending radiology final review Discharge Plan Discharge Patient Disposition: Home Clinical Impression: UTI (urinary tract infection) due to Enterococcus Back pain Qualifiers: Back pain location: low back pain Chronicity: unspecified Back pain laterality: unspecified Sciatica presence: without sciatica Qualified Code(s): M54.50 - Low back pain, unspecified Condition: Stable Prescriptions: New phenazopyridine 100 mg tablet 100 mg PO TID PRN (Reason: dysuria) Qty: 9 0RF nitrofurantoin monohyd/m-cryst 100 mg capsule 100 mg PO BID 5 Days Qty: 10 0RF Rx Instructions: must administer with a meal/food No Action Narcan 4 mg/actuation spray,non-aerosol 4 mg intranasal Q2M Qty: 2 0RF Rx Instructions: spray 1 dose into ONE nostril; alternate nostrils w each dose until help arrives hydrocodone-acetaminophen 10-325 mg tablet 1 tab PO Q6H PRN (Reason: pain) Qty: 10 0RF Discharge Orders: Discharge ED (Routine); Ordered 04/14/24 Ordered By: Rosendo Whalen Referrals: Toña Maya MD [Primary Care Provider] - Patient Instructions: Pain Management Activity Restrictions/Additional Instructions: Take medications for urinary tract infection. Follow-up with Dr. Fountain for results of CT scan. Sign Out Sign Out Data: Patient Sign Out occurred on 04/14/24 at 17:02. Patient's care was discussed, and care was transferred from TYLER Ford to SARI Yates. Coding Level of Care Code ED Washery Engineer for Erica Gutierrez
--- NOTE | 2024-04-14 16:56 | CTR_ITS ---
PROCEDURE INFORMATION: Exam: CT Lumbar Spine Without Contrast Exam date and time: 04/14/2024 6:15 PM Age: 28 years old Clinical indication: Patient HX: C/O RT sided low back pain; Additional info: Back pain, urinary complaints TECHNIQUE: Imaging protocol: Computed tomography of the lumbar spine without contrast. Radiation optimization: All CT scans at this facility use at least one of these dose optimization techniques: automated exposure control; mA and/or kV adjustment per patient size (includes targeted exams where dose is matched to clinical indication); or iterative reconstruction. COMPARISON: CR XR thoracic spine 3V* [id number] 04/11/2024 12:44 PM RADIATION DOSE METRICS: Total DLP (mGy-cm): 540.68 FINDINGS: Bones/joints: No acute fracture. Normal alignment. No significant disc bulge or herniation. No severe spinal canal stenosis. No significant neural foraminal narrowing. Soft tissues: Unremarkable. CT/CT lumbar spine wo con* [id number] IMPRESSION: No acute findings.
[2024-04-14 17:06] VITALS: BP 107/76; PULSE 68; RESP 16; O2SAT 99
[2024-04-14 17:29] LABS: HCG Qualitative Urine. Negative (Negative)
[2024-04-14 17:30] LABS: Bilirubin Urine Negative (Negative); Blood Urine 3+ (Negative); Glucose Urine UA Negative (Normal); Ketones Urine Negative (Negative); Leukocyte Esterase Urine 3+ (Negative); Nitrate Urine Positive (Negative); Protein Urine 1+ (Negative); Specific Gravity, Urine 1.022 (1.005-1.030); Urine Appearance Cloudy (CLEAR); Urine Color Yellow (Yellow)
[2024-04-14 17:32] LABS: Add Urine Microscopic? YES; Bacteria Urine 4+ /hpf; Hyaline Casts Urine 0-4 /lpf; Squamous Epithelial Cell Urine 0-5 /hpf (0-5); WBC Urine >100 /hpf (0-5)
[2024-04-14 17:40] LABS: Add Urine Culture? Yes
[2024-04-14] MEDS: phenazopyridine 100 mg Tablet PO (18:29)
[2024-04-14] MEDS: nitrofurantoin SR (BID) 100 mg Capsule PO (18:29)
[2024-04-14 18:34] VITALS: BP 108/79; PULSE 58; RESP 16; O2SAT 100
== END 2024-04-14 19:23 | disposition home or self-care (01) ==
PROVIDERS: Physician Assistant; Emergency Provider Nurse Practitioner Family; PCP Family Medicine
DX: N39.0 Urinary tract infection, site not specified (principal); B95.2 Enterococcus as the cause of diseases classified elsewhere; M54.50 Low back pain, unspecified
CPT/HCPCS: 72131; 81001; 81025; 87077; 87086; 87186; 99284